=== PATIENT | female | born 1935 | race Caucasian/White ===

== ENCOUNTER 2017-07-18 08:50 | Outpatient (CLI) | payer OTHER ==
--- NOTE | 2017-07-18 11:51 | CT ---
EXAM: CT of the abdomen pelvis with contrast History: Left lower quadrant abdominal pain Technique: Multiplanar CT images through the abdomen pelvis were obtained following administration o f IV and enteric contrast Findings: Lung bases are clear. No acute osseous abnormalities. Moderate degenerative disc disease at T12-L1 and L1-L2. 1 cm simple hepatic cyst. No discrete gallstones identified by CT. Benign calcified granulomas are seen within the spleen. Minimal bilateral renal pelvicaliectasis probably related to the distended b ladder. There are no renal masses. Appendix is normal. Pancreas and adrenal glands are unremarkabl e. No bowel obstruction. Sigmoid colonic diverticulosis. No free air and no ascites. Scattered co lonic stool. Atrophic uterus. 3.2 cm cystic lesion within the right adnexa abutting the base of th e bladder. No perirectal inflammation. No inflammatory stranding. No lymphadenopathy Impression: 1. Sigmoid colonic diverticulosis with no CT evidence for diverticulitis. 2. Minimal bilateral renal pelvicaliectasis probably related to the distended bladder. 3. Right adnexal cystic lesion which is abutting the base of the bladder. Differential diagnosis wo uld include an ovarian cyst versus bladder diverticulum. Recommend further evaluation with pelvic ul trasound. 4. Small simple hepatic cyst.
== END 2017-07-18 08:51 | disposition home or self-care (01) ==
LOC: RAD 08:50
PROVIDERS: ATTEND Family Medicine
DX: R10.9 Unspecified abdominal pain (principal); Z87.898 Personal history of other specified conditions
CPT/HCPCS: 36415; 82565

== ENCOUNTER 2017-09-24 11:48 | Outpatient (CLI) | END 2017-09-24 11:49 | disposition home or self-care (01) | LOC: LAB 11:48 | PROVIDERS: ATTEND Obstetrics & Gynecology | DX: R19.09 Other intra-abdominal and pelvic swelling, mass and lump (principal) | CPT/HCPCS: 36415; 86304 ==